=== PATIENT | female | born 1955 | race Caucasian/White ===

== ENCOUNTER 2024-08-10 13:16 | Outpatient (CLI) | payer MEDICARE, SELFPAY ==
--- OUTSIDE RECORDS SUMMARY | 2024-08-10 13:32 | XMS_ITS | Referral Summary ---
Author Organization [facility] Address [address] [facility] [place] [address] Care Team Providers Care Business Process Architect Name Role Phone Michael Partida MD Primary Care Provider Allergies No known active allergies Medications ALPRAZolam (XANAX) 1 mg tablet TK 1 T PO TID 1 8 Active baclofen (LIORESAL) 10 mg tablet TK 1 T PO QID 0 8 Active aspirin (ASPIRIN LOW DOSE) 81 mg tablet Active calcium carbonate-vitami n D3 (CALCIUM 500 + D) 1,250mg (500mg elemental) - 200 units per tablet Act abner lisinopril (PRINIVIL,ZESTRI L) 20 mg tablet Acti ve metFORMIN (GLUCOPHAGE) 1,000 mg tablet TK 1 T PO BID 4 8 Active nystatin powder APPLY 2-3 TIMES DAILY TO AFFECTED AREA(S). 5 Active TRIAMTERENE-HYDR OCHLOROTHIAZIDE 37.5-25 mg per capsule TK 1 C PO D 0 8 Active tamoxifen (NOLVADEX) 20 mg tablet Take 1 tablet by mouth daily 30 tablet 11 8 Active nitrofurantoin monohydrate (MACROBID) 100 mg capsule TK 1 C PO Q 12 H 0 9 Active ipratropium-albu terol (Combivent Respimat) 20-100 mcg/actuation inhaler every 6 hours Active atorvastatin (LIPITOR) 10 mg tablet Take 1 tablet (10 mg total) by mouth daily 3 Active Active Problems Problem Noted Date Diagnosed Date History of right breast cancer 10/25/2018 Malignant neoplasm of upper- outer quadrant of right breast in female, estrogen receptor positive 05/12/2018 Social History Tobacco Use Types Packs/Day Years Used Date Smoking Tobacco: Every Day Cigarettes 0.5 20 Comments No Sex and Gender Information Value Date Recorded Sex Assigned at Not on file Legal Sex Female 7:13 AM PACKAGER MACHINE Gender Identity Not on file Sexual Orientation Not on file Last Filed Vital Signs Vital Sign Reading Time Taken Comments Blood Pressure 144/77 07/25/2019 11:11 AM PACKAGER MACHINE Pulse 90 07/25/2019 11:11 AM PACKAGER MACHINE Temperature 36.7 C (98 F) 07/25/2019 11:11 AM PACKAGER MACHINE Respiratory Rate 18 07/25/2019 11:11 AM PACKAGER MACHINE Oxygen Saturation 94% 07/25/2019 11:11 AM PACKAGER MACHINE Inhaled Oxygen Concentration - - Weight 100.2 kg (221 lb) 10/18/2022 8:37 AM CDT Height 162.6 cm (5' 4 ) 10/18/2022 8:37 AM CDT Body Mass Index 37.93 10/18/2022 8:37 AM CDT Plan of Treatment Not on file Procedures Procedure Name Priority Date/Time Associated Diagnosis Comments SCREENING MAMMOGRAM BILATERAL W OBDULIO Schedule Routine, Read Routine (OP Routine) 11/06/2020 1:52 PM CDT Encounter for screening mammogram for malignant neoplasm of breast from Last 3 Months or Most Recently Relevant to Health Maintenance Results * Screening Mammogram Bilateral W Obdulio (11/06/2020 1:52 PM CDT) Anatomical Region Laterality Modality Breast Bilateral Mammography Narrative 11/10/2020 11:12 AM CDT Mammogram Technique: Bilateral Digital Breast Tomosynthesis, Bilateral C-view 2D Screening mammogram. Views obtained: bilateral craniocaudal and bilateral mediolateral oblique. Computer Aided Detection was performed. Mammogram Findings: The present examination has been compared to prior imaging studies performed at [facility] on 06/23/2016, 09/28/2017 and 10/25/2018. There are scattered areas of fibroglandular density. There are post breast conservation therapy changes in the right breast. Finding remains unchanged from the prior study. There is no suspicious abnormality in the left breast. Impression: Post breast conservation therapy changes in the right breast are benign. Annual screening mammography is recommended. OVERALL FINAL ASSESSMENT: BI-RADS CATEGORY 2: Benign. Procedure Note Matilde Traylor MD - 11/10/2020 Mammogram Technique: Bilateral Digital Breast Tomosynthesis, Bilateral C-view 2D Screening mammogram. Views obtained: bilateral craniocaudal and bilateral mediolateral oblique. Computer Aided Detection was performed. Mammogram Findings: The present examination has been compared to prior imaging studies performed at [facility] on 06/23/2016, 09/28/2017 and 10/25/2018. There are scattered areas of fibroglandular density. There are post breast conservation therapy changes in the right breast. Finding remains unchanged from the prior study. There is no suspicious abnormality in the left breast. Impression: Post breast conservation therapy changes in the right breast are benign. Annual screening mammography is recommended. OVERALL FINAL ASSESSMENT: BI-RADS CATEGORY 2: Benign. us Self Screening Mammogram IMG MAMMO PROCEDURES Fi nal Result from Last 3 Months or Most Recently Relevant to Health Maintenance Insurance MEDICARE SOLUTIONS [facility] MEDICARE Address: [facility] [address] [place] [address] [employer] ACCESS MEDICARE SOLUTIONS MEDICARE SOLUTIONS Care Teams Business Process Architect Relationship Specialty Start Date End Date Michael Partida MD PCP - General 05/18/17
--- OUTSIDE RECORDS SUMMARY | 2024-08-10 13:32 | XMS_ITS | Encounter Summary ---
Author Organization [facility] Healthcare Address [address] [place] [address] Care Team Providers Care Patient Relations Specialist Name Role Phone Unavailable Primary Care Provider Unavailabl e Reason for Visit * Diagnostic Imaging (Routine) - Closed Specialty Diagnoses / Procedures Referred By Corbin aparicio Referred To Contact Procedures Breast Imaging Diagnostic Outside Reference Reji Hoang NP Phone: tel: fax: Referral ID Status Reason Start Date Expiration Date Visits Re quested Visits Authorized [id number] Closed 10/06/2022 11/05/2023 1 1 Encounter Details Date Type Department Care Team (Late st Contact Info) Description 04/12/2014 Hospital Encounter [facility] [address] [place] [address] Social History Tobacco Use Types Packs/Day Years Used Date Smoking Tobacco: Every Day Cigarettes 0.5 20 Comments No Sex and Gender Information Value Date Recorded Sex Assigned at Not on file Legal Sex Female 7:13 AM WATER VESSEL CAPTAIN Gender Identity Not on file Sexual Orientation Not on file documented as of this encounter Plan of Treatment Not on file documented as of this encounter Procedures Procedure Name Priority Date/Time Associated Diagnosis Comments BREAST IMAGING MG DIAGNOSTIC OUTSIDE REFERENCE Routine 04/12/2014 12:00 AM CDT documented in this encounter Results * Breast Imaging Diagnostic Outside Reference (04/12/2014 12:00 AM CDT) Impressions [facility] - 10/06/2022 3:01 PM CDT These images are for Reference purposes only and have not been reviewed by [facility]. There will be no report generated by a [facility] Radiologist. Narrative RAD_MAMMO_[facility] - 10/06/2022 3:01 PM CDT EXAMINATION: Images For Reference Purposes Only us Reji Hoang NP IMG MAMMO PROCEDURES Final Result [facility]MAMMO[facility] documented in this encounter Visit Diagnoses Not on filedocumented in this encounter
--- OUTSIDE RECORDS SUMMARY | 2024-08-10 13:32 | XMS_ITS | Encounter Summary ---
Author Organization [facility] Healthcare Address [address] [place] [address] Care Team Providers Care Instructional Design Manager Name Role Phone Michael Partida MD Primary Care Provider Encounter Details Date Type Department Care Team (Late st Contact Info) Description 12/07/2018 Telephone [facility] Radiation Oncology [address] [facility] [place] [address] Peri Wellington, COUNTER INTELLIGENCE TECHNICIAN Social History Tobacco Use Types Packs/Day Years Used Date Smoking Tobacco: Every Day Cigarettes 0.5 20 Comments No Sex and Gender Information Value Date Recorded Sex Assigned at Not on file Legal Sex Female 7:13 AM GRAPHIC TECHNICIAN Gender Identity Not on file Sexual Orientation Not on file documented as of this encounter Plan of Treatment Not on file documented as of this encounter Visit Diagnoses Not on filedocumented in this encounter Care Teams Instructional Design Manager Relationship Specialty Start Date End Date Michael Partida MD PCP - General 05/18/17 documented as of this encounter
--- OUTSIDE RECORDS SUMMARY | 2024-08-10 13:32 | XMS_ITS | Encounter Summary ---
Author Organization [facility] Healthcare Address [address] [place] [address] Care Team Providers Care Thoracic Medicine Physician Name Role Phone Michael Partida MD Primary Care Provider Encounter Details Date Type Department Care Team (Late st Contact Info) Description 10/23/[address] [facility] Advanced Medicine Radiation Oncology [address] [facility] [place] [address] Peri Wellington, DIRECTOR ADVERTISING Social History Tobacco Use Types Packs/Day Years Used Date Smoking Tobacco: Never Assessed Comments Unknown Sex and Gender Information Value Date Recorded Sex Assigned at Not on file Legal Sex Female 7:13 AM FREIGHT SOLICITOR Gender Identity Not on file Sexual Orientation Not on file documented as of this encounter Plan of Treatment Not on file documented as of this encounter Visit Diagnoses Not on filedocumented in this encounter Care Teams Thoracic Medicine Physician Relationship Specialty Start Date End Date Michael Partida MD PCP - General 05/18/17 documented as of this encounter
--- OUTSIDE RECORDS SUMMARY | 2024-08-10 13:32 | XMS_ITS | Continuity of Care Document ---
Author Organization [facility] Address [address] [place] [address] utive [facility] [address] [place] [address] Phone Care Team Providers Care Bale Coverer Name Role Phone Ozzy Bob Unavailable Unavailable Procedures Procedure Date Eye Exam & Treatment Refraction Advance Directives Directive Yes / No Effective Date File Name No Information Encounters Encounter Description Practice Location Reason(s) For Visit Diagnoses Date Provider Providers Copied on Encounter [facility], [address] [place] [address] [address] [place], [place], [id number], [place] tel:[phone] SEC [facility] No Information [address] Preciado. [address] [facility] , [address], [place], [address], [place]. tel:[phone] Family History Family Member Type Diagnosis Age At Onset No Information Payers Payer name Insurance type Covered republican ID Authoriza tion(s) [employer] Vision Plan CI [id number] Social History Type Description Quantity Date Captured Comments Sex Female Smoking Status No Information Chief Complaint And Reason For Visit No Information Reason For Referral Reason For Referral No Information History Of Present Illness Encounter Date Complaint History Of Prese nt Illness No Information Functional Status Date Functional Assessmen t No Information Instructions Date Instruction Additional Infor mation No Information Assessments Type Assessment Date No Information Patient Care Teams Name Effective Dates (start - stop) Status Members No Information
--- OUTSIDE RECORDS SUMMARY | 2024-08-10 13:32 | XMS_ITS | Clinical Summary ---
Author Organization [facility] Address [address] [place] [address] Care Team Providers Care Finance Administrator Name Role Phone Michael Partida MD Primary [...] breast in female, estrogen receptor positive 05/12/2018 Surgical History Surgery Date Site/Laterality Comments US UNLISTED PROCEDURE LYMPH SYSTEM 05/30/2014 N/A Medical History Medical History Date Comments Hypertension Type 2 diabetes mellitus (HCC) Family History Medical History Relation Name Comments No Known Problems Mother Relation Name Status Comments Mother Social History Tobacco Use Types Packs/Day Years Used Date Smoking Tobacco: Every Day Cigarettes 0.5 20 Comments No Sex and Gender Information Value Date Recorded Sex Assigned at Not on file Legal Sex Female 7:13 AM SHELL PRESS OPERATOR Gender Identity Not on file Sexual Orientation Not on file Obstetrics History Last Filed Vital Signs Vital Sign Reading Time Taken Comments Blood Pressure 144/77 07/25/2019 11:11 AM SHELL PRESS OPERATOR Pulse 90 07/25/2019 11:11 AM SHELL PRESS OPERATOR Temperature 36.7 C (98 F) 07/25/2019 11:11 AM SHELL PRESS OPERATOR Respiratory Rate 18 07/25/2019 11:11 AM SHELL PRESS OPERATOR Oxygen Saturation 94% 07/25/2019 11:11 AM SHELL PRESS OPERATOR Inhaled Oxygen Concentration - - Weight 100.2 kg (221 lb) 10/18/2022 8:37 AM CDT Height 162.6 cm (5' 4 ) 10/18/2022 8:37 AM CDT Body Mass Index 37.93 10/18/2022 8:37 AM CDT Plan of Treatment Health Maintenance Due Date Last Done Comments Colon Cancer Screening-Colonoscopy 1955 Depression Screening 1953 Fall Risk Assessment 1955 Hepatitis C Screening 1955 Osteoporosis Screening-Bone Density Scan 1955 Pneumococcal vaccine 65+ (1 of 2 - PCV) 1959 DTaP/Tdap/Td Vaccine (1 - Tdap) 1964 Hepatitis B Screening 1971 Zoster Vaccine (1 of 2) 1972 Well Visit 65+ 2018 Breast Cancer Screening-Mammogram 11/06/2021 11/06/2020, 10/25/2018, 09/28/2017, Additional history exists Influenza Vaccine (#1) 2024 Procedures Procedure Name Priority Date/Time Associated Diagnosis [...] compared to prior imaging studies performed at [facility] on 06/23/2016, 09/28/2017 and 10/25/2018. There are [...] compared to prior imaging studies performed at [facility] on 06/23/2016, 09/28/2017 and 10/25/2018. There are [...] Relevant to Health Maintenance Insurance MEDICARE SOLUTIONS [facility] MEDICARE Address: [address] [address] [place] [address] [employer] OPEN ACCESS MEDICARE SOLUTIONS MEDICARE SOLUTIONS Care Teams Finance Administrator Relationship Specialty Start Date End Date Michael Partida MD PCP - General 05/18/17
[2024-08-10 14:03] LABS: Basophils Percent Auto 0.7 % (0.2-1.2); Eosinophils Absolute Auto 0.2 K/mm3 (0-0.3); Eosinophils Percent Auto 2.7 % (0-4.4); Hematocrit 41.7 % (37.0-47.0); Hemoglobin 13.5 g/dL (12.0-15.0); Immature Granulocyte Absolute 0.01 K/mm3 (0.00-0.031); Immature Granulocyte Percent A 0.2 % (0-0.5); Lymphocytes Absolute Auto 2.56 K/mm3 (0.9-3.2); Lymphocytes Percent Auto 43.1 % (18.3-44.2); Mean Corpuscular HGB Conc 32.4 g/dl (32-36); Mean Corpuscular Hemoglobin 31.9 pg (26-34); Mean Corpuscular Volume 98.6 fl (80-100); Mean Platelet Volume 9.9 fl (7.4-10.4); Monocytes Absolute Auto 0.6 K/mm3 (0.1-0.6); Monocytes Percent Auto 9.8 % (2.6-8.5); Neutrophils Absolute Auto 2.6 K/mm3 (1.3-6.7); Neutrophils Percent Auto 43.5 % (45.5-73.1); Platelet Count Result 168 k/mm3 (150-375); Red Blood Count 4.23 M/mm3 (4.2-5.4); Red Cell Distribution Width 13.3 % (11.5-14.5); White Blood Count 5.9 K/mm3 (4.5-10.0)
[2024-08-10 14:12] LABS: Hemoglobin A1C 5.9 % (<5.7)
[2024-08-10 14:20] LABS: Alanine Aminotransferase 18 U/L (6-35); Albumin Level 4.1 g/dL (3.5-5.1); Alkaline Phosphatase 50 U/L (38-126); Anion Gap 10 mmol/L (4-12); Aspartate Amino Transferase 22 U/L (14-36); Bilirubin,Total 0.7 mg/dL (0.2-1.3); Blood Urea Nitrogen 26 mg/dL (7-17); Calcium 8.6 mg/dL (8.4-10.2); Carbon Dioxide 26 mmol/L (22-30); Chloride 100 mmol/L (98-107); Cholesterol 126 mg/dL (0-200); Estimated Glomerular Filt Rate 42; Glucose 97 mg/dL (65-110); HDL Direct 49 mg/dL; Potassium 4.7 mmol/L (3.4-5.0); Sodium 136 mmol/L (137-145); Triglycerides 102 mg/dL (<150)
[2024-08-10 14:30] LABS: LDL Cholesterol Direct 53 mg/dL
[2024-08-10 14:36] LABS: Free T4 Free Thyroxine 1.32 ng/dL (0.78-2.19)
[2024-08-10 14:50] LABS: Thyroid Stimulating Hormone 0.674 uIU/mL (0.465-4.680)
[2024-08-10 17:30] LABS: Microalbumin Urine Random 22.6 mg/L (0-16.7)
[2024-08-10 19:03] LABS: Creatinine Urine 82.1 mg/dL; MALB Creatinine Ratio 27.5 mg/g (0-30)
== END 2024-08-10 13:17 | disposition home or self-care (01) ==
PROVIDERS: PCP Internal Medicine; Visit Provider Internal Medicine
DX: E78.00 Pure hypercholesterolemia, unspecified (principal); E11.9 Type 2 diabetes mellitus without complications
CPT/HCPCS: 36415; 80053; 80061; 82043; 83036; 84439; 84443; 85025

== ENCOUNTER 2025-01-21 12:50 | Outpatient (CLI) | payer MEDICARE, SELFPAY ==
--- NOTE | ~2025-01-21 | MM_ITS ---
EXAMINATION: MM diagnostic oralia BI w scout HISTORY: Unspecified lump. TECHNIQUE: Additional 3-D tomosynthesis images of the breasts were performed and synthetic 2-D images were generated. CAD analysis was submitted and interpreted. COMPARISON: Comparison to multiple prior studies sequentially, with oldest reviewed study dated 01/21. BREAST PARENCHYMAL COMPOSITION: Not dense: There are scattered areas of fibroglandular density. FINDINGS: There is architectural distortion and coarse dystrophic calcifications in the upper outer q uadrant of the right breast consistent with previous lumpectomy site and radiation therapy. No signif icant interval change. No new masses, calcifications or architectural distortion in either breast to suggest malignancy. IMPRESSION: 1. Stable bilateral mammogram. Focal architectural distortion in the upper outer quadrant of the righ t breast corresponds to the area of palpable concern. No evidence for malignancy. 2. Routine yearly screening mammogram and regular clinical breast examination are recommended. BI-RADS Category 2: Benign finding(s). Reviewed, dictated and finalized at location B. IMPRESSION: 1. Stable bilateral mammogram. Focal architectural distortion in the upper oute r quadrant of the right breast corresponds to the area of palpable concern. No evidence for malignancy. 2. Routine yearly screening mammogram and regular clinical breast examination a re recommended. BI-RADS Category 2: Benign finding(s).
--- OUTSIDE RECORDS SUMMARY | 2025-01-21 12:56 | XMS_ITS | Referral Summary ---
Author Organization [facility] Address [address] [facility] [place] [address] Care Team Providers Care Business Analytics Director Name Role Phone Michael Partida MD Primary [...] on file Legal Sex Female 7:13 AM PACKING AND STAMPING MACHINE OPERATOR Gender Identity Not on file Sexual Orientation Not on file Last Filed Vital Signs Vital Sign Reading Time Taken Comments Blood Pressure 144/77 07/25/2019 11:11 AM PACKING AND STAMPING MACHINE OPERATOR Pulse 90 07/25/2019 11:11 AM PACKING AND STAMPING MACHINE OPERATOR Temperature 36.7 C (98 F) 07/25/2019 11:11 AM PACKING AND STAMPING MACHINE OPERATOR Respiratory Rate 18 07/25/2019 11:11 AM PACKING AND STAMPING MACHINE OPERATOR Oxygen Saturation 94% 07/25/2019 11:11 AM PACKING AND STAMPING MACHINE OPERATOR Inhaled Oxygen Concentration - - Weight 100.2 kg (221 lb) 10/18/2022 8:37 AM CDT Height 162.6 cm (5' 4) 10/18/2022 8:37 AM CDT Body Mass Index [...] compared to prior imaging studies performed at [facility] on 06/23/2016, 09/28/2017 and 10/25/2018. There are [...] compared to prior imaging studies performed at [facility] on 06/23/2016, 09/28/2017 and 10/25/2018. There are [...] Most Recently Relevant to Health Maintenance Insurance [facility] MEDICARE ADVANTAGE [employer] [address] [place] [address] [place] [address] MEDICARE ADVANTAGE [facility] MEDICARE ADVANTAGE Care Teams Business Analytics Director Relationship Specialty Start Date End Date Michael Partida MD PCP - General 05/18/17
--- OUTSIDE RECORDS SUMMARY | 2025-01-21 12:56 | XMS_ITS | Clinical Summary ---
Author Organization [facility] Address [address] [place] [address] Care Team Providers Care Oracle Endeca Consultant Name Role Phone Michael Partida MD Primary [...] on file Legal Sex Female 7:13 AM LABOR/EXCAVATOR Gender Identity Not on file Sexual Orientation Not on file Obstetrics History Last Filed Vital Signs Vital Sign Reading Time Taken Comments Blood Pressure 144/77 07/25/2019 11:11 AM LABOR/EXCAVATOR Pulse 90 07/25/2019 11:11 AM LABOR/EXCAVATOR Temperature 36.7 C (98 F) 07/25/2019 11:11 AM LABOR/EXCAVATOR Respiratory Rate 18 07/25/2019 11:11 AM LABOR/EXCAVATOR Oxygen Saturation 94% 07/25/2019 11:11 AM LABOR/EXCAVATOR Inhaled Oxygen Concentration - - Weight 100.2 kg (221 lb) 10/18/2022 8:37 AM CDT Height 162.6 cm (5' 4) 10/18/2022 8:37 AM CDT Body Mass Index 37.93 10/18/2022 8:37 AM CDT Plan of Treatment Health Maintenance Due Date Last Done Comments Colon Cancer Screening-Colonoscopy 1955 Depression Screening 1953 Fall Risk Assessment 1953 Hepatitis C Screening 1953 Osteoporosis Screening-Bone Density Scan 1953 DTaP/Tdap/Td Vaccine (1 - Tdap) 1964 Hepatitis B Screening 1971 Pneumococcal vaccine 65+ (1 of 2 - PCV) 1972 Zoster Vaccine (1 of 2) 1972 Well Visit 65+ 2018 Breast Cancer Screening-Mammogram 11/06/2021 11/06/2020, 10/25/2018, 09/28/2017, Additional history exists Influenza Vaccine (#1) 2025 Procedures Procedure Name Priority Date/Time Associated Diagnosis [...] compared to prior imaging studies performed at [facility] on 06/23/2016, 09/28/2017 and 10/25/2018. [...] compared to prior imaging studies performed at [facility] on 06/23/2016, 09/28/2017 and 10/25/2018. [...] Most Recently Relevant to Health Maintenance Insurance [facility]ICARE [facility] Address: [address] [address] [place] [address] Food Run[employer] OPEN ACCESS [facility] MEDICARE [facility] Address: [address] [address] [place] [address] [facility] MEDICARE ADVANTAGE Care Teams Oracle Endeca Consultant Relationship Specialty Start Date End Date Michael Partida MD PCP - General 05/18/17
--- OUTSIDE RECORDS SUMMARY | 2025-01-21 12:56 | XMS_ITS | Encounter Summary ---
Author Organization [facility] Healthcare Address [address] [place] [address] Care Team Providers Care Travel Director Name Role Phone Michael Partida MD Primary Care Provider Encounter Details Date Type Department Care Team (Late st Contact Info) Description 12/07/2018 Telephone [facility] Advanced Medicine Radiation Oncology [address] [facility] [place] [address] Peri Wellington, TURNING MACHINE SET UP OPERATOR Social History Tobacco Use Types Packs/Day Years Used Date Smoking Tobacco: Every Day Cigarettes 0.5 20 Comments No Sex and Gender Information Value Date Recorded Sex Assigned at Not on file Legal Sex Female 7:13 AM SUGARCANE RESEARCH TECHNICIAN Gender Identity Not on file Sexual Orientation Not on file documented as of this encounter Plan of Treatment Not on file documented as of this encounter Visit Diagnoses Not on filedocumented in this encounter Care Teams Travel Director Relationship Specialty Start Date End Date Michael Partida MD PCP - General 05/18/17 documented as of this encounter
--- OUTSIDE RECORDS SUMMARY | 2025-01-21 12:56 | XMS_ITS | Encounter Summary ---
Author Organization [facility] Healthcare Address [address] [place] [address] Care Team Providers Care Snack Bar Cook Name Role Phone Michael Partida MD Primary Care Provider Encounter Details Date Type Department Care Team (Late st Contact Info) Description 10/23/2018 Telephone [facility] Advanced Medicine Radiation Oncology [address] [facility] [place] [address] Peri Wellington, PRODUCE SHIPPER Social History Tobacco Use Types Packs/Day Years Used Date Smoking Tobacco: Never Assessed Comments Unknown Sex and Gender Information Value Date Recorded Sex Assigned at Not on file Legal Sex Female 7:13 AM OLDER ADULT SOCIAL WORK SPECIALIST Gender Identity Not on file Sexual Orientation Not on file documented as of this encounter Plan of Treatment Not on file documented as of this encounter Visit Diagnoses Not on filedocumented in this encounter Care Teams Snack Bar Cook Relationship Specialty Start Date End Date Michael Partida MD PCP - General 05/18/17 documented as of this encounter
--- OUTSIDE RECORDS SUMMARY | 2025-01-21 12:56 | XMS_ITS | Data Portability ---
Author Organization [facility] [employer], Main Office Address [address] [place] [address] Care Team Providers Care Machine Compositor Name Role Phone LEYLA PARTIDA Primary Care Provider Assessment No assessment recorded. Plan of Treatment Reminders Order Date Submit Date Provider Last Modified By Organization Details Last Modified Time Details Appointments None recorded . Lab HbA1c (hemoglo bin A1c), blood 025 01/03/20 25 [email or web address] [facility] - Outpatient Lab, [address] [place], [address], 5 17:14:34 microalb umin, urine 025 07/11/19 25 [email or web address] [facility], [place], [facility] Out[facility], [address] [place], [address], 5 10:10:33 HbA1c (hemoglo bin A1c), blood 025 07/11/19 25 [email or web address] [facility] Outpatient Lab, [address] [place], [address], 5 10:10:34 lipid panel, serum 025 07/11/19 25 [email or web address] [facility], [place], [facility], [address] [place], [address], 5 10:10:33 CMP, serum or plasma 025 07/11/19 25 [email or web address] [facility], [place], [address] [place], [address], 5 10:10:33 TSH, serum or plasma 025 07/11/19 25 [email or web address] [facility], [place], [facility], [address] [place], [address], 5 10:10:33 T4, free, serum 025 07/11/19 25 [email or web address] [facility], [place], [facility], [address] [place], [address], 5 10:10:33 CBC w/ auto diff 025 07/11/19 25 [email or web address] [facility], [place], [facility], [address] [place], [address], 5 10:10:33 HbA1c (hemoglo bin A1c), blood 024 01/11/[email or web address] [place] [address] Outpatient Lab, [address] [place], [address], 4 14:12:48 microalb umin, urine 024 01/11/20 24 [facility] Outpatient Lab, [address] [place], [address], 4 18:10:13 lipid panel, serum 024 01/11/20 24 [facility] Outpatient Lab, [address] [place], [address], 4 18:02:13 CMP, serum or plasma 024 01/11/20 24 [facility] Outpatient Lab, [address] [place], [address], 4 18:02:23 CBC w/ auto diff 024 01/11/20 24 [facility] Outpatient Lab, [address] [place], [address], 4 17:39:39 Referral None recorded . Procedures None recorded . Surgeries None recorded . Imaging None recorded . Medication Orders None recorded . Patient TargetsNo targets recorded. Patient Instructions Encounter Date Encounter Id Patient Instructions Last Modified By Organization Details Last Modified Time 01/11/2024 [id number] Essential hypertension, hyperlipidemia, type 2 diabetes and obesity class one. Clinically stable at this time. Up-to-date on mammography, bone density scan as well as colonoscopy. Check blood work consisting of CBC, CMP, lipid, hemoglobin A1c and microalbumin. Also check vitamin-D level. Continue on current Rx follow-up in six months. Next Appointment: 6 Months Approximate Date: 07/09/2024 Portions of the record may have been created with voice recognition software. Occasional wrong-word or mefow-x-euol substitutions may have occurred due to the inherent limitations of voice recognition software. Read the chart carefully and recognize, using context, where substitutions have occurred. [email or web address] Not available 01/11/2024 15:18:36 01/23/2024 [id number] reducing risk of another heart attack with medicine: care instructions Not available 01/24/2024 07:58:04 statins: care instructions [email or web address] Not available 01/24/2024 07:58:04 diabetes - monitoring blood sugars education information [email or web address] Not available 01/24/2024 07:58:04 hypertension education [email or web address] Not available 01/24/2024 07:58:04 Learning About B E FAST: Stroke Warning Signs [email or web address] Not available 01/24/2024 07:58:04 diabetes - blood sugar target range [email or web address] Not available 01/24/2024 07:58:04 07/11/2024 [id number] Follow-up for hypertension, hyperlipidemia, type 2 diabetes and obesity class two all clinically stable. Check blood work consisting of CBC, CMP, lipid, thyroid, hemoglobin A1c and microalbumin. Follow-up in four months Follow Up: 4 Months Approximate Date: 11/08/2024 Portions of the record may have been created with voice recognition software. Occasional wrong-word or ukxrk-i-bguv substitutions may have occurred due to the inherent limitations of voice recognition software. Read the chart carefully and recognize, using context, where substitutions have occurred. Created: Leyla Partida M.D. 07.11.2024 04:25 PM [email or web address] Not available 07/11/2024 17:25:24 01/02/2025 [id number] Medicare wellnes s evaluation risk assessment stable. Follow-up for essential hypertension, hyperlipidemia, type 2 diabetes, mass in the right breast and obesity class one. Will continue on current medication check a hemoglobin A1c level. We will get a diagnostic mammogram of the right breast. Refusing other screening studies. Additional Orders - Directives - Recommendations 1. Needs a diagnostic mammogram of the right breast for right breast mass as well as possible axillary adenopathy 2. Need to get a copy on disc of the most recent mammogram performed here at [place] so she can take it with her for more precise evaluation. Follow Up: 4 Months Approximate Date: 05/02/2025 Portions of record are template driven. When necessary additional context will be provided. Additionally some portions have been created with voice recognition software. Occasional wrong-word or fvado-n-uiqc substitutions may have occurred due to the inherent limitations of voice recognition software. Read the chart carefully and recognize, using context, where substitutions may have occurred. Created: Leyla Partida M.D. 01.02.2025 04:19 PM [email or web address] Not available 01/02/2025 17:19:18 Reason for Referral None Reported. Results Created Date Observation Date Name Description Value Unit Range Abnormal Flag Note LastModifiedBy Organization Detail LastModifiedTime 01/11/2001/11/2024 CBC/C OMPLE TE BLD COUNT W/DIF F white blood cells 7.0 x10'3 /uL 4.2-10 .8 Not Available [facility] (Lab) [address] [place], [address], 01/11/2024 17:39:39 01/11/20 24 01/11/2024 CBC/C OMPLE TE BLD COUNT W/DIF F red blood cells 4.14 x10'6 /uL 3.80-5 .20 Not Available [facility] (Lab) [address] [place], [address], 01/11/2024 17:39:39 01/11/20 24 01/11/2024 CBC/C OMPLE TE BLD COUNT W/DIF F hemoglobin 13.4 g/dL 12.0-1 5.6 Not Available [facility] (Lab) [address] [place], [address], 01/11/2024 17:39:39 01/11/20 24 01/11/2024 CBC/C OMPLE TE BLD COUNT W/DIF F hematocrit 40.5 % 35.7-4 5.7 Not Available [facility] (Lab) [address] [place], [address], 01/11/2024 17:39:39 01/11/20 24 01/11/2024 CBC/C OMPLE TE BLD COUNT W/DIF F mean red cell volume 97.8 fL 82.0-9 9.0 Not Available [facility] (Lab) [address] [place], [address], 01/11/2024 17:39:39 01/11/20 24 01/11/2024 CBC/C OMPLE TE BLD COUNT W/DIF F mean red cell hemoglobin 32.4 pg 27.0-3 3.0 Not Available [facility] (Lab) [address] [place], [address], 01/11/2024 17:39:39 01/11/20 24 01/11/2024 CBC/C OMPLE TE BLD COUNT W/DIF F mean RBC HGB concentratio n 33.1 g/dL 31.0-3 6.0 Not Available [facility] (Lab) [address] [place], [address], 01/11/2024 17:39:39 01/11/20 24 01/11/2024 CBC/C OMPLE TE BLD COUNT W/DIF F red cell distribution width 13.3 % 11.8-1 5.5 Not Available [facility] (Lab) [address] [place], [address], 01/11/2024 17:39:39 01/11/20 24 01/11/2024 CBC/C OMPLE TE BLD COUNT W/DIF F platelets 239 x10'3 /uL 150-40 0 Not Available [facility] (Lab) [address] [place], [address], 01/11/2024 17:39:39 01/11/20 24 01/11/2024 CBC/C OMPLE TE BLD COUNT W/DIF F mean platelet volume 10.2 fL 9.0-12 .4 Not Available [facility] (Lab) [address] [place], [address], 01/11/2024 17:39:39 01/11/20 24 01/11/2024 CBC/C OMPLE TE BLD COUNT W/DIF F neutrophils 55.0 % 39.0-7 2.0 Not Available [facility] (Lab) [address] [place], [address], 01/11/2024 17:39:39 01/11/20 24 01/11/2024 CBC/C OMPLE TE BLD COUNT W/DIF F lymphocytes 35.7 % 16.0-4 7.0 Not Available [facility] (Lab) [address] [place], [address], 01/11/2024 17:39:39 01/11/20 24 01/11/2024 CBC/C OMPLE TE BLD COUNT W/DIF F monocytes 7.0 % 5.0-12 .0 Not Available [facility] (Lab) [address] [place], [address], 01/11/2024 17:39:39 01/11/20 24 01/11/2024 CBC/C OMPLE TE BLD COUNT W/DIF F eosinophils 1.4 % 1.0-7. 0 Not Available [facility] (Lab) [address] [place], [address], 01/11/2024 17:39:39 01/11/20 24 01/11/2024 CBC/C OMPLE TE BLD COUNT W/DIF F basophils 0.6 % 0.0-2. 0 Not Available [facility] (Lab) [address] [place], [address], 01/11/2024 17:39:39 01/11/20 24 01/11/2024 CBC/C OMPLE TE BLD COUNT W/DIF F immature granulocytes 0.3 % 0.00-0 .50 Not Available [facility] (Lab) [address] [place], [address], 01/11/2024 17:39:39 01/11/20 24 01/11/2024 CBC/C OMPLE TE BLD COUNT W/DIF F neutrophils, absolute count 3.85 x10'3 /uL 1.5-8. 0 Not Available [facility] (Lab) [address] [place], [address], 01/11/2024 17:39:39 01/11/20 24 01/11/2024 CBC/C OMPLE TE BLD COUNT W/DIF F lymphocytes, absolute count 2.50 x10'3 /uL 1.07-3 .43 Not Available [facility] (Lab) [address] [place], [address], 01/11/2024 17:39:39 01/11/20 24 01/11/2024 CBC/C OMPLE TE BLD COUNT W/DIF F monocytes, absolute count 0.49 x10'3 /uL 0.29-0 .99 Not Available [facility] (Lab) [address] [place], [address], 01/11/2024 17:39:39 01/11/20 24 01/11/2024 CBC/C OMPLE TE BLD COUNT W/DIF F eosinophils, absolute count 0.10 x10'3 /uL 0.02-0 .53 Not Available [facility] (Lab) [address] [place], [address], 01/11/2024 17:39:39 01/11/20 24 01/11/2024 CBC/C OMPLE TE BLD COUNT W/DIF F basophils, absolute count 0.04 x10'3 /uL 0.01-0 .08 Not Available [facility] (Lab) [address] [place], [address], 01/11/2024 17:39:39 01/11/20 24 01/11/2024 CBC/C OMPLE TE BLD COUNT W/DIF F immature granulocytes ,absolute 0.02 x10'3 /uL 0.00-0 .05 Not Available [facility] (Lab) [address] [place], [address], 01/11/2024 17:39:39 01/11/20 24 01/11/2024 CBC/C OMPLE TE BLD COUNT W/DIF F nucleated red blood cells 0.0 % -0 Not Available [facility] (Lab) [address] [place], [address], 01/11/2024 17:39:39 01/11/20 24 01/11/2024 CBC/C OMPLE TE BLD COUNT W/DIF F NRBC# 0.00 x10'3 /uL Not Available [facility] (Lab) [address] [place], [address], 01/11/2024 17:39:39 01/11/20 24 01/11/2024 LIPID PANEL cholesterol 142 mg/dL 140-19 9 NIH MARGARITA NSUS RECOM MENDA TION FOR HERACLIO STERO L: ADULT CHILD LOW RISK: <200 <170 BORDE RLINE : <200- 239 ----- HIGH RISK: >240 >200 Not Available [facility] (Lab) [address] [place], [address], 01/11/2024 18:02:13 01/11/20 24 01/11/2024 LIPID PANEL triglyceride s 112 mg/dL 0-150 NIH MARGARITA NSUS REPOR T RECOM MENDA TION FOR TRIGL YCERI MYLENE: ADULT CHILD LOW RISK: <150 ----- BODER LINE: 150-1 99 ----- HIGH RISK: >200 ----- Not Available [facility] (Lab) [address] [place], [address], 01/11/2024 18:02:13 01/11/20 24 01/11/2024 LIPID PANEL HDL cholesterol 64 mg/dL 40- Not Available [facility] (Lab) [address] [place], [address], 01/11/2024 18:02:13 01/11/20 24 01/11/2024 LIPID PANEL LDL cholesterol, calculated 56 mg/dL 0-130 NIH MARGARITA NSUS REPOR T RECOM MENDA TIONS FOR LDL: ADULT CHILD LOW RISK <130 <110 (OPTI MAL LDL) <100 ----- BORDE RLINE : 130-1 59 ----- HIGH RISK: >160 >130 A TRIGL YCERI DE RESUL T >400 INVAL IDATE S THE CALCU LATIO N FOR LDL FRACT IONAT ION - THE LDL RESUL T WILL NOT BE REPOR YESICA. Not Available [facility] (Lab) [address] [place], [address], 01/11/2024 18:02:13 01/11/20 24 01/11/2024 COMPR EHENS TED METAB OLIC PANEL sodium 136 mmol/ L 137-14 5 low Not Available [facility] (Lab) [address] [place], [address], 01/11/2024 18:02:23 01/11/20 24 01/11/2024 COMPR EHENS TED METAB OLIC PANEL potassium 4.4 mmol/ L 3.5-5. 1 Not Available [facility] (Lab) [address] [place], [address], 01/11/2024 18:02:23 01/11/20 24 01/11/2024 COMPR EHENS TED METAB OLIC PANEL chloride 100 mmol/ L 98-107 Not Available [facility] (Lab) [address] [place], [address], 01/11/2024 18:02:23 01/11/20 24 01/11/2024 COMPR EHENS TED METAB OLIC PANEL carbon dioxide 30 mmol/ L 22-30 Not Available [facility] (Lab) [address] [place], [address], 01/11/2024 18:02:23 01/11/20 24 01/11/2024 COMPR EHENS TED METAB OLIC PANEL anion gap 10.4 mmol/ L 14-22 low Not Available [facility] (Lab) [address] [place], [address], 01/11/2024 18:02:23 01/11/20 24 01/11/2024 COMPR EHENS TED METAB OLIC PANEL glucose 80 mg/dL 70-99 Not Available [facility] (Lab) [address] [place], [address], 01/11/2024 18:02:23 01/11/20 24 01/11/2024 COMPR EHENS TED METAB OLIC PANEL BUN 13 mg/dL 8-19 Not Available [facility] (Lab) [address] [place], [address], 01/11/2024 18:02:23 01/11/20 24 01/11/2024 COMPR EHENS TED METAB OLIC PANEL creatinine 1.14 mg/dL 0.66-1 .25 Not Available [facility] (Lab) [address] [place], [address], 01/11/2024 18:02:23 01/11/20 24 01/11/2024 COMPR EHENS TED METAB OLIC PANEL GFR 47 Refer ence Range : Jerome ge GFR Healt hy Adult : >60 mL/mi n/1.7 3 m2 Chron ic Kidne y Disea se: 15-60 mL/mi n/1.7 3 m2 Kidne y Failu re: <15/m L/min /1.73 m2 www.n iddk. nih.g ov The MDRD study equat ion has not been valid ated in child yamile <18 years of age; pregn ant women ; the elder ly >85 years of age; or in some racia l or ethni c subgr oups, such as Hismoisés nics. Outsi de the valid ated kristan eters , estim ated GFR is less accur ate, requi ring clini constantino judgm ent on a case- by-ca se basis . Clini constantino inter preta tion for other races and ages must be made by the clini meet. The MDRD study equat ion has not been valid ated for the evalu ation of serum creat inine relat ed to nutri ambrose l statu s or medic ation usage . For perso ns <18 years of age, a pedia tric GFR calcu lator is avail able on the [facility] websi te: https :[email or web address] draper.rufina barajas.jenny rg/pr ofess ional s/kdo qi/gf r_cal culat or Not Available [facility] (Lab) [address] [place], [address], 01/11/2024 18:02:23 01/11/20 24 01/11/2024 COMPR EHENS TED METAB OLIC PANEL alkaline phosphatase 54 U/L 38-126 Not Available [facility] (Lab) [address] [place], [address], 01/11/2024 18:02:23 01/11/20 24 01/11/2024 COMPR EHENS TED METAB OLIC PANEL alanine aminotransfe rase 21 U/L 0-35 Not Available [facility] (Lab) [address] [place], [address], 01/11/2024 18:02:23 01/11/20 24 01/11/2024 COMPR EHENS TED METAB OLIC PANEL aspartate aminotransfe rase 25 U/L 15-37 Not Available [facility] (Lab) [address] [place], [address], 01/11/2024 18:02:23 01/11/20 24 01/11/2024 COMPR EHENS TED METAB OLIC PANEL bilirubin, total 0.60 mg/dL 0.20-1 .30 Not Available [facility] (Lab) [address] [place], [address], 01/11/2024 18:02:23 01/11/20 24 01/11/2024 COMPR EHENS TED METAB OLIC PANEL calcium 9.1 mg/dL 8.4-10 .2 Not Available [facility] (Lab) [address] [place], [address], 01/11/2024 18:02:23 01/11/20 24 01/11/2024 COMPR EHENS TED METAB OLIC PANEL total protein 7.9 g/dL 6.3-8. 2 Not Available [facility] (Lab) [address] [place], [address], 01/11/2024 18:02:23 01/11/20 24 01/11/2024 COMPR EHENS TED METAB OLIC PANEL albumin 4.5 g/dL 3.0-4. 4 high Not Available [facility] (Lab) [address] [place], [address], 01/11/2024 18:02:23 01/11/20 24 01/11/2024 COMPR EHENS TED METAB OLIC PANEL globulin 3.4 g/dL 2.6-4. 2 Not Available [facility] (Lab) [address] [place], [address], 01/11/2024 18:02:23 01/11/20 24 01/11/2024 COMPR EHENS TED METAB OLIC PANEL A/G ratio 1.3 ratio 1.0-2. 0 Not Available [facility] (Lab) [address] [place], [address], 01/11/2024 18:02:23 01/11/20 24 01/11/2024 MICRO ALBUM IN RANDO M URINE microalbumin , urine 37.6 mg/L 0.0-16 .6 high Not Available [facility] (Lab) [address] [place], [address], 01/11/2024 18:10:13 01/11/20 24 01/11/2024 HEMOG LOBIN A1C HA1C 6.0 % 4.0-6. 0 Diabe nicanor Scree greg Crite yessenia: <5.7% Consi stent with absen ce of diabe nicanor 5.7-6 .4% Consi stent with incre ased risk for diabe nicanor (pred iabet es) >OR=6 .5% Consi stent with diabe nicanor REFER ENCE: Diabe nicanor Care 2016, 39([place] ppl.1 ):s13 -s22 Not Available [facility] (Lab) [address] [place], [address], 01/11/2024 21:21:59 Result Notes None recorded. Problems Name Problem SNOMED Code Status Onset Date Resolution Date Notes Provider Name and Address Organization Details Recorded Time Benign essential hypertens ion 8668765 Active Not Available [facility] 3 05:57:01 Asthma 580418419 Active Not Available [facility] 3 05:57:01 Anxiety disorder 862507520 Active Jelly Ananth, CCM null, [place] [facility] [facility] 4 14:49:13 Gastroeso phageal reflux disease 347003202 Active Jelly Ananth, CCM null, [place] [facility] 4 14:49:13 Malignant tumor of breast 655172193 Active Not Available [facility] 3 05:57:01 Pure hyperchol esterolem ia 135526889 Active Jelly Ananth, CCM null, [place] [facility] 4 14:49:14 Type 2 diabetes mellitus 43469759 Active Jelly Ananth, CCM null, [place] [facility] 4 14:49:14 Hernia of abdominal cavity 86426415 Active Not Available [facility] 3 05:57:01 Gastroent eritis presumed infectiou s 94349667 Completed Not Available [facility] 3 05:57:01 Varicose veins of lower extremity 06417909 Active Not Available [facility] 3 05:57:01 Sleep apnea 45481752 Active Not Available [facility] 3 05:57:01 Family history of colorecta l cancer 56743773868 04 Active 2019 Not Available [facility] 3 05:57:01 Neuropath y due to diabetes mellitus 281516870 Active 2022 Jelly Wadsworth CCM null, [place] [facility] 4 14:49:13 Mass of right breast 40775300594 704875 Active 2022 Oksana Calderon [employer] null, [place] [facility] 3 12:19:05 Sciatica 19102999 Active 2022 Jelly Wadsworth CCM null, [place] [facility] 4 14:49:13 Cough 67220703 Active 2022 Oksana Calderon [employer] null, [place] [facility] 3 14:49:16 Acute sinusitis 92097397 Active 2022 Leyla Partida MD [address], [address], [place], [address] , [place] [facility] 3 12:15:45 Acute bronchiti s 94922093 Active 2023 Leyla Partida MD [address], [address], [place], [address] , [place] [facility] 4 12:38:57 Dermatoph ytosis 98624312 Active 2023 Leyla Partida MD [address], [address], [place], [address] , [place] [facility] 4 16:54:47 Acute urinary tract infection 768891182 Active 2023 Leyla Partida MD [address], [address], [place], [address] , [facility] [employer] [facility] [employer] [facility] 4 16:20:43 Obese class II 84546489756 4105 Active 2024 Leyla Partida MD [address], [place], [address] , [facility] [employer] [facility] [employer] [facility] 5 17:21:51 COVID-19 523439524 Active 2024 Leyla Partida MD [address], [place], [address] , [facility] [employer] [facility] [employer] [facility] 5 17:32:33 Breast lump 29472998 Active 2024 Kimberlee reyna, [facility] [employer] [facility] 17:25:41 Problem Notes None recorded. Procedures Surgical History Date Name Laterality Status Provider Name and Address Organization Details Recorded Time 01/23/20 Chronic care management services completed Rochelle Colby [facility] [employer] [facility] 01/23/2024 22:57:50 12/22/19 24 Chronic care management services completed Jelly Wadsworth [facility] [employer] [facility] 12/22/2023 21:19:39 11/23/19 Chronic care management services completed Jelly Wadsworth [facility] [employer] [facility] 11/23/2023 20:51:13 01/08/20 20 Colonoscopy with biopsy completed Not Available [facility] 08/25/2022 05:52:58 Imaging Results None recorded. Procedure Notes None recorded. Medical Equipment None Reported. Allergies Allergen ID Allergen Name Allergen Category Reaction Reaction Severity Criticality Documentation Date Start Date Code Code System Note Provider Name and Address Organization Details Recorded Time 16488 Substance with sulfonami de structure and antibacte rial mechanism of action (substanc e) medicatio n nausea Not available Not available 08/25/2022 17819 8003 SNOMED Not Available [facility] 3 06:01:56 16454 codeine medicatio n Not available Not available Not available 08/25/2022 2670 RxNorm Upset stoma ch Not Available [facility] 3 06:01:56 50393 Adriana-D medicatio n other Not available Not available 08/25/2022 84644 2 RxNorm palpi tatio ns Not Available [facility] 3 06:01:56 Medications Name Sig Start Date Stop Date Status Note LastModified by Organization Details LastModified Time cyclobenzap rine 10 mg tablet TK 1 T PO TID active Not Available Not Available No t Available amoxicillin 500 mg capsule Take 1 capsule 3 times a day by oral route for 10 days. 07/14 completed Not Available Not Available Not Available Tylenol-Cod eine #4 300 mg-60 mg tablet Take 1 tablet every 6 hours by oral route. 01/20 completed Not Available Not Available Not Available Glucophage 500 mg tablet TAKE 1 TABLET TWICE A DAY WITH FOOD 11/13 completed Not Available Not Available Not Available atorvastati n 10 mg tablet TAKE 1 TABLET BY MOUTH EVERY DAY active Not Available Not Available No t Available azithromyci n 250 mg tablet TAKE 2 TABLETS (500 MG) BY ORAL ROUTE ONCE DAILY FOR 1 DAY THEN 1 TABLET (250 MG) BY ORAL ROUTE ONCE DAILY FOR 4 DAYS 01/02 completed Not Available Not Available Not Available alprazolam 1 mg tablet TAKE 1 TABLET BY MOUTH THREE TIMES DAILY FOR ANXIETY 2024 active Not Available Not Available Not Avai lable benzonatate 200 mg capsule TAKE 1 CAPSULE BY MOUTH THREE TIMES DAILY 07/11 completed Not Available Not Available Not Available hydrocodone 5 mg-acetamin ophen 325 mg tablet TK 1 T PO Q 6 H PRN P. active Not Available Not Available No t Available Nystop 100,000 unit/gram topical powder APPLY 2-3 TIMES D AA 07/11 completed Not Available Not Available Not Available lisinopril 20 mg tablet TAKE 1 TABLET BY MOUTH ONCE DAILY IN THE MORNING AND 1/2 (ONE-HALF ) TABLET IN THE EVENING active Not Available Not Available No t Available aspirin 81 mg tablet,madeline yed release Take 1 tablet every day by oral route. 2021 active Not Available Not Available Not Avai lable tramadol 50 mg tablet Take 1 tablet(s) EVERY 6 HOURS by oral route for pain active Not Available Not Available No t Available triamterene 37.5 mg-hydrochl orothiazide 25 mg capsule TAKE 1 CAPSULE BY MOUTH EVERY DAY active Not Available Not Available No t Available meclizine 25 mg tablet TK 1 T PO TID 07/11 completed Not Available Not Available Not Available baclofen 10 mg tablet TAKE 1 TABLET BY MOUTH THREE TIMES DAILY FOR BACK PAIN 07/11 completed Not Available Not Available Not Available dexamethaso ne 2 mg tablet TAKE 1 TABLET BY MOUTH THREE TIMES DAILY FOR 3 DAYS THEN TAKE 1 TABLET BY MOUTH TWICE DAILY FOR 3 DAYS THEN TAKE 1 TABLET BY MOUTH DAILY FOR 3 DAYS 01/02 completed Not Available Not Available Not Available hydrocodone 7.5 mg-acetamin ophen 325 mg tablet One every six hours PRN for pain 01/20 completed Not Available Not Available Not Available cephalexin 500 mg capsule TK ONE C PO QID active Not Available Not Available No t Available metformin 1,000 mg tablet TAKE 1 TABLET BY MOUTH TWICE DAILY 2024 active Not Available Not Available Not Avai lable clotrimazol e-betametha sone 1 %-0.05 % topical cream APPLY TOPICALLY TO THE AFFECTED AND SURROUNDI NG AREAS TWICE DAILY IN THE MORNING AND IN THE EVENING FOR 2 WEEKS 07/11 completed Not Available Not Available Not Available [place] 10 mg-325 mg tablet Take 1 tablet(s) EVERY 4 HOURS by oral route prn for pain 01/20 completed Not Available Not Available Not Available furosemide 20 mg tablet TAKE 1 TABLET BY MOUTH EVERY DAY 05/21 completed Not Available Not Available Not Available Levaquin 500 mg tablet Take 1 tablet every 24 hours by oral route. 05/22 completed Not Available Not Available Not Available methylpredn isolone 4 mg tablets in a dose pack FOLLOW PACKAGE DIRECTION S 01/03 completed Not Available Not Available Not Available albuterol sulfate HFA 90 mcg/actuati on aerosol inhaler INHALE 2 PUFFS BY MOUTH EVERY 4 HOURS active Not Available Not Available No t Available tamoxifen 20 mg tablet TK 1 T PO QD 01/04 completed Not Available Not Available Not Available amoxicillin 875 mg-potassiu m clavulanate 125 mg tablet TAKE 1 TABLET BY MOUTH EVERY 12 HOURS 07/14 completed Not Available Not Available Not Available nitrofurant oin monohydrate /macrocryst als 100 mg capsule TAKE 1 CAPSULE BY MOUTH EVERY 12 HOURS 07/11 completed Not Available Not Available Not Available anastrozole 1mg one daily 11/25 completed Not Available Not Available Not Available lisinopril 2012 active Not Available Not Available Not Avai lable metformin 2012 active Not Available Not Available Not Avai lable Sharyn Low Dose Aspirin 01/04 completed Not Available Not Available Not Available Coly-Mycin S 3.3 mg-3 mg-10 mg-0.5 mg/mL ear drops,suspe nsion Instill 5 drops 4 times a day by otic route. 01/20 completed Not Available Not Available Not Available Suprep Bowel Prep Kit 17.5 gram-3.13 gram-1.6 gram oral solution MIX AND DRINK UTD 01/04 completed Not Available Not Available Not Available Combivent Respimat 20 mcg-100 mcg/actuati on solution for inhalation Inhale 1 puff 4 times a day by inhalatio n route. 2012 active Not Available Not Available Not Avai lable Vitals Date Recorded Body height Body mass index (BMI) Body weight Heart rate Body temperature Oxygen saturation Oxygen saturation in Arterial blood by Pulse oximetry Systolic And Diastolic Provider Name and Address Organization Details Last Updated DateTime 5 160.02 cm 35.1 kg/m2 73343.2 9 g 88 /min 97 [degF] 95 % 95 % 122/78 mm[Hg] [employer] 5 17:06:25 Date Recorded Body height Provider Name an d Address Organization Details Last Updated DateTime 12/22/2023 165.1 cm Jelly Wadsworth [facility] [employer] 12/22/2023 21:15:06 Date Recorded Body height Body mass index (BMI) Body weight Heart rate Body temperature Oxygen saturation Oxygen saturation in Arterial blood by Pulse oximetry Systolic And Diastolic Provider Name and Address Organization Details Last Updated DateTime 5 165.1 cm 33.1 kg/m2 21837.8 8 g 72 /min 97 [degF] 92 % 92 % 138/74 mm[Hg] [employer] 5 16:56:03 Date Recorded Body height Body mass index (BMI) Body weight Heart rate Body temperature Oxygen saturation Oxygen saturation in Arterial blood by Pulse oximetry Systolic And Diastolic Provider Name and Address Organization Details Last Updated DateTime 4 165.1 cm 34.4 kg/m2 93689.6 2 g 91 /min 97.6 [degF] 95 % 95 % 130/82 mm[Hg] Nell Coon [facility] [employer] [facility] 15:08:28 Date Recorded Body height Provider Name an d Address Organization Details Last Updated DateTime 01/23/2024 165.1 cm Rochelle Colby [facility] [employer] [facility] 01/23/2024 22:56:04 Social History None recorded. Functional Status Question Answer Note LastModified by Organizat ion Details LastModified Time What is your occupation? [id number] Information not available 08/25/2022 Mental Status None recorded. Family History Nothing Reported Notes:Mother 71 from HD, DM, COPD Father 69 from ASHD, DM and Asbestosis. Three brothers. One of overdose another from cirrhosis and one living and in good health. Two sisters living and in good health. Medical History Condition Response BLINDNESS N NERVE DISEASE N RHEUMATIC FEVER N BLADDER PROBLEMS N KIDNEY STONES N MRSA N OTHER # 1 N POLIO N LUNG DISEASE/DISORDER N HISTORY OF DRUG ABUSE N RADIATION / CHEMOTHERAPY N COPD N Other # 2 N BLOOD DISEASES N EAR OR HEARING PROBLEMS N MUMPS N SHINGLES N BOWEL PROBLEMS N DEPRESSION (INCLUDING POST ) N STROKE/TIA N ULCERS N BENIGN PROSTATIC HYPERPLASIA N MEASLES N HYPOTENSION N MYOCARDIAL INFARCTION N OBESITY N GERD/NAUSEA N ANEURYSM N URINARY/BLADDER/KIDNEY PROBLEMS N CORONARY ARTERY DISEASE (CAD) N ADDICTION CONCERNS N Impotence N ENDOMETRIOSIS N USE OF BLOOD THINNERS N SKIN PROBLEMS N GASTROINTESTINAL DISORDER N PERIPHERAL VASCULAR DISEASE N MUSCLE,JOINT OR BONE PROBLEMS N GASTROINTESTINAL BLEEDING N BLOOD CLOTS N ASTHMA Y CATARACTS N ERECTILE DYSFUNCTION N VARICOSITIES N GI PROBLEMS N Low Testosterone N INFERTILITY N AIDS/HIV N CHEMOTHERAPY / RADIATION N LIVER DISEASE N MALE HYPOGONADISM N HYPERTENSION Y Deficiency N TOURETTE'S N ANXIETY DISORDER Y BLOOD TRANSFUSION N ANEMIA/BLOOD DISORDER N CHRONIC EAR INFECTIONS N BRONCHITIS N TUBERCULOSIS N GLAUCOMA N FOOT PROBLEM N DIVERTICULITIS N SLEEP APNEA N CHICKENPOX N INFECTIOUS DISEASE N PROSTATE N HEART ARRHYTHMIA N INSOMNIA N HIGH CHOLESTEROL / HYPERLIPIDEMIA Y EYE PROBLEMS N HYPERTHYROIDISM N EDEMA N CHRONIC PAIN SYNDROME N HYPOTHYROIDISM N CAROTID BLOCKAGE N CONSTIPATION N BACK / NECK PROBLEMS N HAVE YOU BEEN HOSPITALIZED OR SEEN IN [facility] IN THE PAST YEAR ? N ATHEROSCLEROSIS N BREAST PROBLEMS N DIALYSIS N ECZEMA N OSTEOPOROSIS N ARTHRITIS N NO SIGNIFICANT PAST MEDICAL HISTORY N APPENDICITIS N DIABETES, TYPE Y BAD TEETH N ENT N HEARTBURN / REFLUX Y AUTISM SPECTRUM DISORDER (ASD) N HEPATITIS / LIVER DISEASE N GOUT N SLEEP DISORDER N ALZHEIMER'S DISEASE N Brain Problems N DEMENTIA N HERPES N SEIZURES/EPILEPSY N HEADACHES/MIGRAINES N VASCULAR DISEASE N PACEMAKER N Blood Disorder N DIZZINESS N HEART DISEASE/HEART PROBLEMS N KIDNEY DISEASE N MULTIPLE SCLEROSIS N CANCER: SPECIFY Y CARDIAC ARRHYTHMIA N ATRIAL FIBRILLATION N Gall Stones N PULMONARY EMBOLISM N AUTOIMMUNE DISEASE N Gynecological HistoryNo gynecological history recorded. Obstetrics History GPAL:G 0 P 0 0 0 0 Immunizations Vaccine Type Date Status Note Provider Nam e and Address Organization Details Recorded Time SARS-COV-2 (COVID-19) vaccine, UNSPECIFIED completed Not Available [facility] 08/25/2022 06:01:47 Past Encounters Encounter ID Performer Location Encounter Start Date Encounter Closed Date Diagnosis/Indication Diagnosis SNOMED-CT Code Diagnosis ICD10 Code Diagnosis Note [id number] Leyla Partida MD [facility] [address] [address] 12/01/2020 00:00:00 12/01/2020 17:31:17 [id number] Leyla Partida MD [facility] [place] [address] [address] 06/29/2021 00:00:00 06/29/2021 15:28:21 [id number] Leyla Partida MD [facility] [place] [address] [address] 01/04/2022 00:00:00 01/04/2022 15:51:11 [id number] MD JUSTIN Quiros[facility] [place] [address] [address] 07/05/2022 00:00:00 07/05/2022 15:14:02 [id number] Leyla Partida MD [facility] [place] [address] [address] 01/03/2023 15:03:13 01/03/2023 15:50:02 Benign essential hypertension 5949401 I10 Pure hypercholesterolemia 028439383 E78.00 Gastroesop hageal reflux disease 667490702 K21.9 Type 2 [place] betes mellitus 90361907 E11.9 Obese class II 083846758 1 97498 E66.9 [id number] Leyla Partida MD [facility] Internal Med [place] [address] [address] 07/14/2023 10:50:33 07/14/2023 11:13:48 Benign essential hypertension 2281620 I10 Pure hypercholesterolemia 802867781 E78.00 Type 2 [place] betes mellitus 14050133 E11.9 Anxiety disorder 6626972 06 F41.9 [id number] Leyla Partida MD [facility] Internal Med [facility] [address] [address] 11/23/2023 20:43:41 03/02/2024 07:28:42 Anxiety disorder 256230205 F41.9 Type 2 [place] betes mellitus 16979546 E11.9 [id number] Leyla Partida MD [facility] [place] [address] [address] 12/22/2023 21:13:41 12/23/2023 09:18:19 Anxiety disorder 902318822 F41.9 Type 2 [place] betes mellitus 05030183 E11.9 [id number] Leyla Partida MD [facility] Internal Med [address] [address] 01/11/2024 15:01:29 01/11/2024 15:35:57 Benign essential hypertension 7358605 I10 Pure hypercholesterolemia 809125553 E78.00 Type 2 [place]ota betes mellitus 27282531 E11.9 Obese class I 6851075196 01594 E66.9 [id number] Leyla Partida MD [facility] Internal Med [facility] [address] [address] 01/23/2024 22:54:30 01/24/2024 09:03:37 Type 2 diabetes mellitus 15054586 E11.9 Pure hypercholesterolemia 892932850 E78.00 Benign ess ential hypertension 8436883 I10 Neuropathy due to diabetes mellitus 576812576 E11.40 [id number] Leyla Partida MD [facility] Internal [facility] [address] [address] 07/11/2024 16:38:53 07/11/2024 17:29:38 Type 2 diabetes mellitus 63700661 E11.9 Benign ess ential hypertension 3757413 I10 Pure hypercholesterolemia 812412189 E78.00 Asthma 918886519 J45.90 9 Obese class II 897687241 1 19565 E66.9 [id number] Leyla Partida MD [facility] Internal [facility] [address] [address] 01/02/2025 16:53:36 01/03/2025 17:24:08 General examination of patient 398911669 Z00.00 Benign ess ential hypertension 3086699 I10 Mass of right breast 362 5682876 3808094 N63.10 Pure hypercholesterolemia 591384339 E78.00 Type 2 [place]ota betes mellitus 50416844 E11.9 Goals Section Goal Description Progress Status Start Date LastModified by Organization Details LastModified Time Activiti es of Daily Living Performs activities of daily living independently or with minimal assistance NoChange active 2023 Jelly Wadsworth [facility] Information not available 11/23/2023 18:53:51 Adequate Sleep Achieves adequate, well-rested sleep with minimal disruption NoChange active 2023 Jelly Wadsworth [facility] Information not available 11/23/2023 18:53:51 Stress Manageme nt Reports effective management of stress Progressing active 2023 Jelly Wadsworth [facility] Information not available 12/21/2023 20:17:37 Exercise Regularl y Follows a regular exercise regimen or instructed exercise plan as per care team recommendation (s) NoChange active 2023 Jelly Wadsworth CCM Information not available 11/23/2023 18:53:51 Quality of Life Reports satisfaction with quality of life NoChange active 2023 Jelly Wadsworth CCM Information not available 11/23/2023 18:53:51 Recreati onal Activiti es Participates in recreational activities NoCge active 2023 Jelly Ananth, CCM Information not available 11/23/2023 18:53:51 Medicati on Regimen Follows medication regimen as per care team recommendation (s) NoC active 2023 Jelly Ananth, CCM Information not available 11/23/2023 18:53:52 Family and Social Support Reports family and/or social support needs are met NoC active 2023 Jelly Ananth, CCM Information not available 11/23/2023 18:53:52 Adequate Housing Conditio ns Maintains adequate housing with satisfactory living conditions Progressing active 2023 Jellyallyssa Wadsworth CCM Information not available 12/21/2023 20:17:50 Follow-u p Appointm ent(s) Attends referral and/or follow-up appointment(s) as per care team recommendation (s) Progressing active 2023 Jellyallyssa Wadsworth CCM Information not available 12/21/2023 20:17:54 Food Security Reports ability to access and obtain foods to meet nutritional needs Progressing active 2023 Jelly Ananth, CCM Information not available 12/21/2023 20:17:56 Effectiv e Coping Manages life events with effective coping methods Progressing active 2023 Jelly Ananth, CCM Information not available 12/21/2023 20:18:03 Knowledg e of Disease or Conditio n Demonstrates understanding of disease(s) or condition(s) NoC active 2023 Jelly Wadsworth, CCM Information not available 11/23/2023 18:53:52 Diet Adherenc e Follows prescribed or recommended diet NoC active 2023 Jellyleno Wadsworth, CCM Information not available 11/23/2023 18:53:52 Symptom Manageme nt Demonstrates ability to manage and/or control symptoms NoC active 2023 Jellyleno Wadsworth, CCM Information not available 11/23/2023 18:53:52 Financia l Stabilit y Reports financial status and/or income meets needs NoCge active 2023 Jelly Wadsworth, CCM Information not available 11/23/2023 18:53:52 Health Concerns Section Related Observation LastModified by Organization Detai ls LastModified Time Chronic sick Not Available Not Available Not Available Concern Status LastModified by Organization Details LastModified Time caregiver role strain Active Jelly Wadsworth [facility] Not Available 11/23/2023 18:5 2:25 Advance Directives Directive None Recorded Payers Insurance Date Sequence Insurance Name Policy Number Policy Gómez Covered Member ID Gómez Member ID Guarantor Name 12/31/2024 1 [facility] (MEDICARE REPLACEMENT/A DVANTAGE - PPO) [id number] Bing Escobar [id number] Bing Escobar OBGyn Episode No OBEpisode recorded.
--- OUTSIDE RECORDS SUMMARY | 2025-01-21 12:56 | XMS_ITS | Encounter Summary ---
Author Organization [facility] Healthcare Address [address] [place] [address] Care Team Providers Care Liner Roll Changer Name Role Phone Unavailable Primary Care Provider Unavailabl e Reason for Visit * Diagnostic Imaging (Routine) - Closed Specialty Diagnoses / Procedures Referred By Corbin aparicio Referred To Contact Procedures Breast Imaging Diagnostic Outside Reference Reji Hoang NP Phone: tel: fax: Referral ID Status Reason Start Date Expiration Date Visits Re quested Visits Authorized [id number] Closed 10/06/2022 11/05/2023 1 1 Encounter Details Date Type Department Care Team (Late st Contact Info) Description 04/12/2014 Hospital Encounter [facility] [address] [place] [id number] Social History Tobacco Use Types Packs/Day Years Used Date Smoking Tobacco: Every Day Cigarettes 0.5 20 Comments No Sex and Gender Information Value Date Recorded Sex Assigned at Not on file 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 Gender Identity Not on file Sexual Orientation Not on file documented as of this encounter Plan of Treatment Not on file documented as of this encounter Procedures Procedure Name Priority Date/Time Associated Diagnosis Comments BREAST IMAGING MG DIAGNOSTIC OUTSIDE REFERENCE Routine 04/12/2014 12:00 AM CDT documented in this encounter Results * Breast Imaging Diagnostic Outside Reference (04/12/2014 12:00 AM CDT) Impressions RAD[facility] - 10/06/2022 3:01 PM CDT These images are for Reference purposes only and have not been reviewed by [facility] Radiology. There will be no report generated by a [facility] Radiologist. Narrative RAD_MAMMO_[facility] - 10/06/2022 3:01 PM CDT EXAMINATION: Images For Reference Purposes Only us Reji Hoang NP IMG MAMMO PROCEDURES Final Result RAD_MAMMO_[facility] documented in this encounter Visit Diagnoses Not on filedocumented in this encounter
== END 2025-01-21 12:51 | disposition home or self-care (01) ==
PROVIDERS: PCP Internal Medicine; Visit Provider Internal Medicine
DX: N63.11 Unspecified lump in the right breast, upper outer quadrant (principal)
CPT/HCPCS: 77062; 77066; G0279

== ENCOUNTER 2025-02-12 12:34 | Outpatient (CLI) | payer MEDICARE, SELFPAY ==
--- OUTSIDE RECORDS SUMMARY | 2014-04-12 | XMS_ITS | Encounter Summary ---
Author Organization [facility] Healthcare Address [address] [place] [address] Care Team Providers Care Sheet Metal Mechanic Name Role Phone Unavailable Primary Care Provider Unavailabl e Reason for Visit * Diagnostic Imaging (Routine) - Closed Specialty Diagnoses / Procedures Referred By Corbin aparicio Referred To Contact Procedures Breast Imaging Diagnostic Outside Reference Reji Hoang NP Phone: tel: fax: Referral ID Status Reason Start Date Expiration Date Visits Re quested Visits Authorized [id number] Closed 10/06/2022 11/05/2023 1 1 Encounter Details Date Type Department Care Team (Late st Contact Info) Description 04/12/2014 Hospital Encounter [facility] [address] [place] [id number] Social History Tobacco Use Types Packs/Day Years Used Date Smoking Tobacco: Every Day Cigarettes 0.5 20 Comments No Sex and Gender Information Value Date Recorded Sex Assigned at Not on file Legal Sex Female 7:13 AM TUBE CUTTER Gender Identity Not on file Sexual Orientation Not on file documented as of this encounter Plan of Treatment Not on file documented as of this encounter Procedures Procedure Name Priority Date/Time Associated Diagnosis Comments BREAST IMAGING MG DIAGNOSTIC OUTSIDE REFERENCE Routine 04/12/2014 12:00 AM CDT documented in this encounter Results * Breast Imaging Diagnostic Outside Reference (04/12/2014 12:00 AM CDT) Impressions [facility] - 10/06/2022 3:01 PM CDT These images are for Reference purposes only and have not been reviewed by [facility] Radiology. There will be no report generated by a [facility] Radiologist. Narrative [facility]_MAMMO_[facility] - 10/06/2022 3:01 PM CDT EXAMINATION: Images For Reference Purposes Only us Reji Hoang NP IMG MAMMO PROCEDURES Final Result [facility]MAMMO[facility] documented in this encounter Visit Diagnoses Not on filedocumented in this encounter
--- OUTSIDE RECORDS SUMMARY | 2025-02-12 12:43 | XMS_ITS | Clinical Summary ---
Author Organization [facility] Address [address] [place] [address] Care Team Providers Care Package Line Operator Name Role Phone Michael Partida MD Primary [...] Date Comments Hypertension Type 2 diabetes mellitus Family History Medical History Relation Name Comments No Known Problems Mother Relation Name Status Comments Mother Social History Tobacco Use Types Packs/Day Years Used Date Smoking Tobacco: Every Day Cigarettes 0.5 20 Comments No Sex and Gender Information Value Date Recorded Sex Assigned at Not on file Legal Sex Female 7:13 AM DECK OFFICER Gender Identity Not on file Sexual Orientation Not on file Obstetrics History Last Filed Vital Signs Vital Sign Reading Time Taken Comments Blood Pressure 144/77 07/25/2019 11:11 AM DECK OFFICER Pulse 90 07/25/2019 11:11 AM DECK OFFICER Temperature 36.7 C (98 F) 07/25/2019 11:11 AM DECK OFFICER Respiratory Rate 18 07/25/2019 11:11 AM DECK OFFICER Oxygen Saturation 94% 07/25/2019 11:11 AM DECK OFFICER Inhaled Oxygen Concentration - - Weight 100.2 [...] compared to prior imaging studies performed at [facility] on 06/23/2016, 09/28/2017 and [...] compared to prior imaging studies performed at [facility] on 06/23/2016, 09/28/2017 and [...] Most Recently Relevant to Health Maintenance Insurance [facility] MEDICARE ADVANTAGE Reppify OPEN ACCESS [facility] MEDICARE ADVANTAGE [facility] MEDICARE ADVANTAGE Care Teams Package Line Operator Relationship Specialty Start Date End Date Michael Partida MD PCP - General 05/18/17
--- OUTSIDE RECORDS SUMMARY | 2025-02-12 12:43 | XMS_ITS | Encounter Summary ---
Author Organization [facility] Healthcare Address [address] [place] [address] Care Team Providers Care Cloth Shrinking Tester Name Role Phone Michael Partida MD Primary Care Provider Encounter Details Date Type Department Care Team (Late st Contact Info) Description 12/07/2018 Telephone [facility] Advanced Medicine Radiation Oncology [address] 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
--- OUTSIDE RECORDS SUMMARY | 2025-02-12 12:43 | XMS_ITS | Encounter Summary ---
Author Organization [facility] Healthcare Address [address] [place] [address] Care Team Providers Care Entomology Professor Name Role Phone Michael Partida MD Primary Care Provider Encounter Details Date Type Department Care Team (Late st Contact Info) Description 10/23/2018 Telephone [facility] Advanced Medicine Radiation Oncology [address] [facility] [place] [address] Peri Wellington, PUBLIC WORKS MANAGER Social History Tobacco Use Types Packs/Day Years Used Date Smoking Tobacco: Never Assessed Comments Unknown Sex and Gender Information Value Date Recorded Sex Assigned at Not on file Legal Sex Female 7:13 AM EXPERIENCE PLANNING STRATEGIST Gender Identity Not on file Sexual Orientation Not on file documented as of this encounter Plan of Treatment Not on file documented as of this encounter Visit Diagnoses Not on filedocumented in this encounter Care Teams Entomology Professor Relationship Specialty Start Date End Date Michael Partida MD PCP - General 05/18/17 documented as of this encounter
[2025-02-12 14:01] LABS: Hemoglobin A1C 5.8 % (<5.7)
== END 2025-02-12 12:35 | disposition home or self-care (01) ==
PROVIDERS: PCP Internal Medicine; Visit Provider Internal Medicine
DX: E11.9 Type 2 diabetes mellitus without complications (principal)
CPT/HCPCS: 36415; 83036